=== PATIENT | female | born 1965 | race Two or more races ===

== ENCOUNTER 2024-07-16 10:23 | Emergency (ER) | payer MEDICAID, SELFPAY ==
[2024-07-16 10:58] VITALS: BP 132/79; PULSE 74; RESP 18; TEMP 36.7; O2SAT 97; BMI 29.9
--- NOTE | 2024-07-16 11:13 | PD.EDBACK ---
ED Back Injury Pain RME/HPI General Chief Complaint: Back Pain/Injury Stated Complaint: BACK PAIN Time Seen by Provider: 07/16/24 10:39 Arrival date/time: 07/16/24 10:23 58-year-old female presents to the emergency department today saying that she had ground-level fall 2 days ago patient reports since then she been having nerve pain patient reports upper back pain and arm pain. Patient reports that she fell with outstretched arms Limitations: no limitations Related Data Previous Rx's ?Medication ?Instructions ?Recorded docusate sodium 100 mg capsule 100 mg PO BID #40 caps 02/25/18 hydrocodone 5 mg-acetaminophen 325 1 tab PO Q6HR PRN pain #20 tabs 02/25/18 mg tablet (Gerlach) ibuprofen 600 mg tablet 600 mg PO QID PRN dolor y fiebre 11/22/18 #30 tabs cyclobenzaprine 10 mg tablet 10 mg PO TID PRN muscle spasm 10 07/16/24 days #30 tab-caps ibuprofen 600 mg tablet 600 mg PO Q6H #30 tabs 07/16/24 Allergies Allergy/AdvReac Type Severity Reaction Status Date / Time No Known Allergies Allergy Verified 07/16/24 10:25 Review of Systems Review of Systems Systems Reviewed: All systems reviewed, normal except as documented Constitutional Constitutional: Reports system reviewed and no additional complaints, except as documented, Denies fever(s) and Denies headache(s) Eyes Eyes: Reports system reviewed and no additional complaints, except as documented and Denies blurry vision ENT Ears, Nose, Mouth, and Throat: Reports system reviewed and no additional complaints, except as documented, Denies headache(s), Denies nasal congestion and Denies nasal discharge Cardiovascular Cardiovascular: Reports system reviewed and no additional complaints, except as documented, Denies chest pain and Denies dyspnea Respiratory Respiratory: Reports system reviewed and no additional complaints, except as documented, Denies chest congestion, Denies cough and Denies dyspnea Gastrointestinal Gastrointestinal: Reports system reviewed and no additional complaints, except as documented and Denies abdominal pain Musculoskeletal Musculoskeletal: Reports system reviewed and no additional complaints, except as documented, Denies abnormal gait, Denies deformity, Denies joint swelling and Reports other (Muscular pain) Integumentary/Breasts Skin/Breast: Reports system reviewed and no additional complaints, except as documented and Denies rash Neurologic Neurologic: Reports system reviewed and no additional complaints, except as documented, Reports as per HPI, Denies abnormal gait and Denies headache(s) Past Medical History Past Medical History NEUROLOGIC: Negative Neurological Disorders CARDIAC: Negative Cardiac Disorders ED Exam General Limitations: Present no limitations General appearance: Present alert and in no apparent distress Head Head exam: Present atraumatic, normocephalic and normal inspection Eye Eye exam: Present normal appearance, PERRL and EOMI; Absent conjunctival injection ENT ENT exam: Present normal exam, normal oropharynx and mucous membranes moist Neck Neck exam: Present normal inspection, full ROM and trachea midline; Absent tenderness Chest Chest inspection: Present normal inspection and symmetric chest wall rise Respiratory Respiratory exam: Present normal lung sounds bilaterally; Absent respiratory distress Cardiovascular Cardiovascular exam: Present regular rate, normal rhythm and normal heart sounds Abdominal Exam Abdominal exam: Present soft and normal bowel sounds; Absent distention, tenderness, guarding, rebound or rigidity Extremities Exam Extremities exam: Present normal inspection and full ROM Back Exam Back exam: Present normal inspection and full ROM Neurological Exam Neurological exam: Present alert, oriented X3 and CN II-XII intact Psychiatric Psychiatric exam: Present normal affect and normal mood Skin Skin exam: Present warm, dry, intact and normal color Course Quality Measures none Orders Category Date Time Status Ketorolac Inj [Toradol Inj] Med 07/16/24 11:13 Discontinued 30 mg IM X1 ONE Vital Signs Vital signs: Vital Signs Temperature 98.1 F 07/16/24 10:58 Pulse Rate 74 07/16/24 10:58 Respiratory Rate 18 07/16/24 10:58 Blood Pressure 132/79 H 07/16/24 10:58 Pulse Oximetry (%) 97 07/16/24 10:58 Oxygen Delivery Method Room Air 07/16/24 10:58 O2 saturation 97% room air within normal limits Back Pain / Injury MDM Narrative MDM Narrative:: 58-year-old female presents to the emergency department today saying that she had ground-level fall 2 days ago patient reports since then she been having nerve pain patient reports upper back pain and arm pain. Patient reports that she fell with outstretched arms Patient reports generalized pain no other specific patient is concerned that she has nerve pain Patient moves her arms freely patient walks with steady gait patient has no chest pain or shortness of breath no abdominal pain head and neck are atraumatic and patient reports no head or neck injury Patient discharged home in no distress to follow-up with primary care doctor in the next 24 to 48 hours and for any worsening symptoms to return to the ER immediately Patient data External records reviewed:: [facility] previous records Clinical information provided by:: patient Social determinants that could affect healthcare access:: none Patient has the following chronic illnesses:: None How is presenting disease/condition affected by chronic disease/condition?: no chronic disease Evaluation data The following diagnostics were reviewed and interpreted by me:: other (specify) (N/A) Lab and/or radiology exams considered but not ordered:: Consider not indicated Interpretation Summary: N/A Medications / Prescriptions Medications or Prescriptions considered but not ordered:: Given Medication administrations:: Medication Administration History Discontinued Medications Ketorolac Tromethamine (Ketorolac Inj 30 Mg/Ml Vial) 30 mg IM X1 ONE Stop: 07/16/24 11:14 Given Consultations Consultation(s) initiated? (list below): No Diagnosis Differential diagnosis back pain/injury: lumbar radiculopathy, strain of lumbar region and other (Muscle strain) Most likely diagnosis given after review of the tests above:: Fall Admission Indicated Admission indicated?: not indicated Admission Request Was there a request for admission?: No Disposition Plan Disposition Plan: Discharge Discharge Attestation Discharge Attestation: The patient and all family members were given an opportunity to ask questions and understood the discharge instructions. Discharge instructions specifically effects, indications for sooner follow up or return to the emergency department, and the expected course of current diagnosis. Patient condition: Stable Discharge Plan Plan Patient Disposition: HOME (Self Care) Disposition Comment: Stable Prescriptions/Referrals Prescriptions/Med Rec: New cyclobenzaprine 10 mg tablet 10 mg PO TID PRN (Reason: muscle spasm) 10 Days Qty: 30 0RF ibuprofen 600 mg tablet 600 mg PO Q6H Qty: 30 0RF No Action docusate sodium 100 mg Capsule 100 mg PO BID Qty: 40 0RF hydrocodone-acetaminophen [Gerlach] 5-325 mg tablet 1 tab PO Q6HR MDD 4 PRN (Reason: pain) Qty: 20 0RF ibuprofen 600 mg tablet 600 mg PO QID PRN (Reason: dolor y fiebre) Qty: 30 0RF Problem List Clinical Impression: Pain, Fall Patient/Caregiver Discharge Instructions Education Materials: Medicine for Pain Additional Instructions: Please follow up with your primary care doctor in the next 24-48hrs for any worsening symptoms return here immediately Print Language: Estonian Stand Alone Forms: Amie Award Info., Patient Portal Info Letter PA/SUPERVISOR PAYROLL Supervising Physician PA/SUPERVISOR PAYROLL Supervising Physician: Dr herrera
[2024-07-16] MEDS: KETOROLAC INJ 30 MG/ML VIAL IM (11:22)
== END 2024-07-16 11:39 | disposition home or self-care (01) ==
PROVIDERS: Emergency Provider Emergency Medicine
DX: S29.9XXA Unspecified injury of thorax, initial encounter (principal); M79.603 Pain in arm, unspecified; W18.30XA Fall on same level, unspecified, initial encounter
CPT/HCPCS: 96372; 99283; J1885

== ENCOUNTER 2024-10-06 22:41 | Emergency (ER) | payer MEDICAID, SELFPAY ==
--- NOTE | 2024-10-06 23:00 | EKG_ITS ---
[facility] Test Date: 2024-10-06 Pat Name: CLARENCE LOFTON Department: Room: - Gender: Female Manager Wind: : 1965 Requested By: Thomas Sebastian Order Number: [id number] Reading MD: Thomas Sebastian Measurements Intervals [place] Rate: 102 P: 43 AK: 160 QRS: 59 QRSD: 92 T: 52 QT: 364 QTc: 475 Interpretive Statements SINUS TACHYCARDIA POSSIBLE INFERIOR MYOCARDIAL INFARCTION , OF INDETERMINATE AGE [30 ms Q WAVE IN II/aVF] MODERATE T-WAVE ABNORMALITY, CONSIDER ANTERIOR ISCHEMIA [-0.1+ mV T-WAVE IN V3/V4] No previous ECG available for comparison /store/S0/[id number]/[id number].pdf
[2024-10-06 23:01] VITALS: BP 144/102; PULSE 96; RESP 18; TEMP 36.7; O2SAT 96
--- NOTE | 2024-10-06 23:01 | PD.EDRME ---
Rapid Medical Screening Exam RME Arrival date/time: 10/06/24 22:41 58 yo f present to ED for c/o of bodyaches, headache, abd pain for 1 week I have greeted and performed a focused initial assessment of this patient. A comprehensive ED assessment and evaluation of the patient, analysis of all test results, and completion of the medical decision making process will be conducted by additional ED providers. Chief Complaint: Headache Time Seen by Provider: 10/06/24 22:56
[2024-10-06 23:55] LABS: Basophils % (Auto) 0 % (0-2.5); Eosinophils # (Auto) 0.1 Thou/mm3 (0.0-0.5); Eosinophils % (Auto) 1 % (0-10); Hematocrit 41.7 % (36.0-46.0); Hemoglobin 14.6 g/dL (12.0-16.0); Immature Granulocytes % (Auto) 0 % (0-0); Immature Granulocytes Auto 0.03 Thou/mm3 (0.00-0.00); Lymphocytes # (Auto) 2.8 Thou/mm3 (1.0-4.8); Lymphocytes % (Auto) 30 % (10-50); Mean Corpuscular Hemoglobin 28.7 pg (25.0-35.0); Mean Corpuscular Volume 82 fL (80-100); Monocytes # (Auto) 0.5 Thou/mm3 (0.0-0.8); Monocytes % (Auto) 6 % (0-12); Neutrophils # (Auto) 5.8 Thou/mm3 (1.8-7.7); Neutrophils % (Auto) 63 % (37-80); Nucleated Red Blood Cell % 0 /100 WBC (0); Platelet Count 241 Thou/mm3 (140-440); Red Blood Count 5.09 Miln/mm3 (4.00-5.20); White Blood Count 9.2 Thou/mm3 (3.6-11.0)
[2024-10-07 00:12] LABS: Alanine Aminotransferase 36 U/L (10-49); Albumin, Serum 4.3 gm/dL (3.5-5.0); Alkaline Phosphatase 160 U/L (46-116); Aspartate Amino Transferase 38 U/L (0-34); BUN/Creatinine Ratio 18 Ratio (12-20); Bilirubin,Total 1.3 mg/dL (0.3-1.2); Blood Urea Nitrogen 11 mg/dL (9-23); Calcium 9.9 mg/dL (8.3-10.6); Calcium (Corrected) 9.9 mg/dL (8.5-10.1); Carbon Dioxide 23.6 mMol/L (20.0-31.0); Creatinine (Component) 0.6 mg/dL (0.6-1.3); Globulin 4.3 gm/dL (2.3-3.5); Glucose 123 mg/dL (74-106); Lipase 33 U/L (12-53); Total Protein 8.6 gm/dL (5.7-8.2); Troponin I < 0.020 ng/mL (0.0-0.045)
[2024-10-07 00:18] LABS: Collection Type, Urine Voided
[2024-10-07 00:26] LABS: Bilirubin,Urine Negative (Negative); Blood,Urine Negative (Negative); Clarity,Urine Clear (Clear/Hazy); Color,Urine Colorless (Lt Yel-Yel); Glucose, Urine Negative (Negative); Ketones,Urine 1+ (Negative); Leukocyte Esterase,Urine Negative (Negative); Nitrite,Urine Negative (Negative); PH,Urine 6.5 (5.0-7.0); Protein,Urine Negative (Neg - Trace); RBC,Urine < 1 /hpf (0-3); Specific Gravity,Urine 1.007 (1.001-1.035); Squamous Epithelial Cell,Urine < 1 /hpf (0-5); Urobilinogen,Urine Negative mg/dL (0.0-1.0); WBC,Urine < 1 /hpf (0-5)
[2024-10-07 00:47] LABS: Anion Gap 10 (7-16); Chloride 105 mMol/L (98-107); Osmolality,Calculated 277 (275-295); Potassium 3.6 mMol/L (3.4-5.1); Sodium 139 mMol/L (136-145)
[2024-10-07 01:20] VITALS: BMI 28.8
[2024-10-07 04:29] VITALS: BP 131/96; PULSE 86; RESP 17; TEMP 36.7; O2SAT 97
--- NOTE | 2024-10-07 06:19 | XR_ITS ---
Examination: CT brain head without contrast. 2-D sagittal coronal reconstructions Date and time of exam:September 2024 0626 hrs. Indications: Headaches bodyaches today CTDI: vol (mGy):40.1 DLP: (mGycm):881 Technique: Multiple CT axial sections of the brain have been obtained, 5 mm slice thickness. Contrast has not been administered. 2-D sagittal, coronal reconstructions have been obtained Low dose protocols were performed. One or more of the following dose reduction techniques were used; automated exposure control, adjustment of the mA and/or KV according to patient size, use of iterative reconstruction technique. Findings: No significant ventricular enlargement. Intra-axial or extra-axial hemorrhage density is not seen. No mass effect or midline shift Basal cisterns are not remarkable. Fourth ventricle is midline. Cranial vault intact. Impression: Negative for acute hemorrhage, mass effect or midline shift
--- NOTE | 2024-10-07 06:23 | PD.EDHA ---
ED Headache RME/HPI General Chief Complaint: Headache Stated Complaint: HEAD PAIN, BODY ACHES Time Seen by Provider: 10/06/24 22:56 Source: patient Arrival date/time: 10/06/24 22:41 58-year-old female with no known medical history presents to the emergency room with a chief complaint of bodyaches, headache, dizziness x 8 days. Mode of arrival: ambulatory Limitations: no limitations RME / HPI RME / HPI Narrative: 10/06/24 22:41 58 yo f present to ED for c/o of bodyaches, headache, abd pain for 1 week I have greeted and performed a focused initial assessment of this patient. A comprehensive ED assessment and evaluation of the patient, analysis of all test results, and completion of the medical decision making process will be conducted by additional ED providers. Related Data Previous Rx's ?Medication ?Instructions ?Recorded docusate sodium 100 mg capsule 100 mg PO BID #40 caps 02/25/18 hydrocodone 5 mg-acetaminophen 325 1 tab PO Q6HR PRN pain #20 tabs 02/25/18 mg tablet (Roy) ibuprofen 600 mg tablet 600 mg PO QID PRN dolor y fiebre 11/22/18 #30 tabs ibuprofen 600 mg tablet 600 mg PO Q6H #30 tabs 07/16/24 meclizine 25 mg tablet 25 mg PO BID PRN dizziness #14 tabs 10/07/24 Allergies Allergy/AdvReac Type Severity Reaction Status Date / Time No Known Allergies Allergy Verified 07/16/24 10:25 Review of Systems Review of Systems Systems Reviewed: All systems reviewed, normal except as documented Constitutional Constitutional: Reports system reviewed and no additional complaints, except as documented, Denies fatigue, Denies fever(s), Reports headache(s) and Reports weakness Eyes Eyes: Reports system reviewed and no additional complaints, except as documented, Denies blurry vision and Denies change in vision ENT Ears, Nose, Mouth, and Throat: Reports system reviewed and no additional complaints, except as documented, Denies otalgia, Reports headache(s), Denies nasal congestion, Denies throat swelling and Reports vertigo Cardiovascular Cardiovascular: Reports system reviewed and no additional complaints, except as documented, Denies chest pain, Denies dyspnea and Denies dyspnea on exertion Respiratory Respiratory: Reports system reviewed and no additional complaints, except as documented, Denies chest congestion, Denies cough, Denies dyspnea, Denies dyspnea on exertion and Denies wheezing Gastrointestinal Gastrointestinal: Reports system reviewed and no additional complaints, except as documented, Denies abdominal pain, Denies cramping, Denies nausea and Denies vomiting Genitourinary Genitourinary: Reports system reviewed and no additional complaints, except as documented Musculoskeletal Musculoskeletal: Reports system reviewed and no additional complaints, except as documented and Denies back pain Integumentary/Breasts Skin/Breast: Reports system reviewed and no additional complaints, except as documented and Denies wounds Neurologic Neurologic: Reports system reviewed and no additional complaints, except as documented, Denies confusion, Reports headache(s), Denies lack of coordination, Reports vertigo and Reports weakness Psychiatric Psychiatric: Reports system reviewed and no additional complaints, except as documented, Denies anxiety, Denies confusion, Denies depression, Denies paranoia, Denies suicidal ideation and Denies tactile hallucinations Endocrine Endocrine: Reports system reviewed and no additional complaints, except as documented and Denies fatigue Hematologic/Lymphatic Hematologic/Lymphatic: Reports system reviewed and no additional complaints, except as documented and Denies lymphadenopathy Allergic/Immunologic Allergic/Immunologic: Reports system reviewed and no additional complaints, except as documented, Denies throat swelling, Denies urticaria and Denies wheezing Past Medical History Past Medical History NEUROLOGIC: Negative Neurological Disorders or Seizures CARDIAC: Negative Cardiac Disorders or Congestive Heart Failure RESPIRATORY: Negative Chronic Obstructive Pulmonary Disease (COPD) or Asthma GASTROINTESTINAL: Negative Gastrointestinal Disorders GENITOURINARY: Negative Genitourinary Disorders or Renal Disease ENDOCRINE: Negative Diabetes Mellitus Type 1 or Diabetes Mellitus Type 2 HEMATOLOGIC: Negative Sickle Cell Disease OTHER HISTORY: Negative Blood Transfusions, Blood Transfusion Reaction or Anesthesia Reactions Social History SMOKING STATUS: Never smoker SECOND HAND EXPOSURE: No SUBSTANCE USE: does not use ED Exam General Limitations: Present no limitations General appearance: Present alert and in no apparent distress Head Head exam: Present atraumatic, normocephalic and normal inspection Eye Eye exam: Present normal appearance, PERRL and EOMI ENT ENT exam: Present normal exam, normal oropharynx and mucous membranes moist Neck Neck exam: Present normal inspection, full ROM and trachea midline Chest Chest inspection: Present normal inspection and symmetric chest wall rise Respiratory Respiratory exam: Present normal lung sounds bilaterally; Absent respiratory distress, wheezes, stridor, accessory muscle use or prolonged expiratory phase Cardiovascular Cardiovascular exam: Present regular rate, normal rhythm and normal heart sounds; Absent bradycardia, tachycardia, irregular rhythm or diastolic murmur Abdominal Exam Abdominal exam: Present soft and normal bowel sounds Extremities Exam Extremities exam: Present normal inspection and full ROM Back Exam Back exam: Present normal inspection and full ROM Neurological Exam Neurological exam: Present alert, oriented X3 and CN II-XII intact Psychiatric Psychiatric exam: Present normal affect and normal mood Skin Skin exam: Present warm, dry, intact and normal color Course Quality Measures none Orders Category Date Time Status Bedside COVID-19 Antigen Test NOW Care 10/06/24 23:01 Active Bedside Influenza A&B Antigen Test NOW Care 10/06/24 23:01 Completed EKG (ED ONLY) *Do not use* NOW Care 10/06/24 23:[address] head/brain wo con Stat Exams 10/07/24 06:19 Completed EKG (ED Only) Stat Exams 10/06/24 23:00 Draft CBC Stat Lab 10/06/24 23:40 Completed CMP [Comprehensive Metabolic Panel] Stat Lab 10/06/24 23:40 Completed Lipase Stat Lab 10/06/24 23:40 Completed Troponin I Stat Lab 10/06/24 23:40 Completed UA [Urinalysis] Stat Lab 10/06/24 23:59 Completed Meclizine HCl [Antivert] Med 10/07/24 06:19 Discontinued 50 mg PO X1 ONE Vital Signs Vital signs: Vital Signs Temperature 98.0 F 10/06/24 23:01 Pulse Rate 96 10/06/24 23:01 Respiratory Rate 18 10/06/24 23:01 Blood Pressure 144/102 H 10/06/24 23:01 Pulse Oximetry (%) 96 10/06/24 23:01 Oxygen Delivery Method Room Air 10/06/24 23:01 Procedures -ED EKG Interpretation #1: Date of EK10/06/24 Rate: 102 EKG Impression: Sinus tachycardia Headache MDM Narrative MDM Narrative:: 58-year-old female with no known medical history presents to the emergency room with a chief complaint of bodyaches, headache, dizziness x 8 days. Patient is hemodynamically stable and in no apparent distress. During my reevaluation I examined the patient and patient is still having 10 out of 10 headaches and dizziness. I decided to order CT of the head and brain which was negative for any acute findings. The patient is a GCS of 15 she is alert and oriented x 3 pupils are PERRLA EOMs are intact the patient has a normal steady gait and states that she is having dizziness when laying down in bed and with sudden positional changes. EKG CBC CMP troponin were all within normal limits Patient was discharged and educated to follow-up with primary care provider in the next 24 to 48 hours and return to the emergency room for any evidence of worsening signs or symptoms Patient data External records reviewed:: [facility] previous records Clinical information provided by:: patient Social determinants that could affect healthcare access:: none Patient has the following chronic illnesses:: No chronic illness How is presenting disease/condition affected by chronic disease/condition?: no chronic disease Evaluation data The following diagnostics were reviewed and interpreted by me:: lab results and radiology exam(s) Lab and/or radiology exams considered but not ordered:: Labs and radiology exams considered and ordered Interpretation Summary: CT of the head and brain-Findings: No significant ventricular enlargement. Intra-axial or extra-axial hemorrhage density is not seen. No mass effect or midline shift Basal cisterns are not remarkable. Fourth ventricle is midline. Cranial vault intact. Impression: Negative for acute hemorrhage, mass effect or midline shift Medications / Prescriptions Medications or Prescriptions considered but not ordered:: Medication given Medication administrations:: Medication Administration History Discontinued Medications Meclizine HCl (Meclizine Hcl 25 Mg Tablet) 50 mg PO X1 ONE Stop: 10/07/24 06:20 Last Admin: 10/07/24 06:32 Dose: 50 mg Documented By: DIMITRIOS Medication given Consultations Consultation(s) initiated? (list below): No Diagnosis Differential diagnosis headache: migraine, tension headache, headache, sinusitis and other (Vertigo) Most likely diagnosis given after review of the tests above:: Vertigo Admission Indicated Admission indicated?: not indicated Admission Request Was there a request for admission?: No Disposition Plan Disposition Plan: Discharge Discharge Attestation Discharge Attestation: The patient and all family members were given an opportunity to ask questions and understood the discharge instructions. Discharge instructions specifically effects, indications for sooner follow up or return to the emergency department, and the expected course of current diagnosis. Patient condition: Stable Discharge Plan Plan Patient Disposition: HOME (Self Care) Prescriptions/Referrals Prescriptions/Med Rec: New meclizine 25 mg tablet 25 mg PO BID PRN (Reason: dizziness) Qty: 14 0RF No Action docusate sodium 100 mg Capsule 100 mg PO BID Qty: 40 0RF hydrocodone-acetaminophen [Roy] 5-325 mg tablet 1 tab PO Q6HR MDD 4 PRN (Reason: pain) Qty: 20 0RF ibuprofen 600 mg tablet 600 mg PO QID PRN (Reason: dolor y fiebre) Qty: 30 0RF ibuprofen 600 mg tablet 600 mg PO Q6H Qty: 30 0RF Referrals: No Primary/Family,Physician [Primary Care Provider] - In 1 week Problem List Clinical Impression: Vertigo Patient/Caregiver Discharge Instructions Education Materials: Vertigo Medicine Tx, Vertigo Staying Safe Additional Instructions: Por favor, consulte con yuan m?dico de cabecera en las pr?ximas 24 a 48 horas. Se realiz? jihan tomograf?a computarizada de david y cerebro y result? negativa para cualquier hallazgo sidra. Yuan examen card?aco se encontraba dentro de los l?mites normales. Si hay evidencia de empeoramiento de los signos o s?ntomas, regrese a la gabe de emergencias de inmediato. Print Language: Hungarian Stand Alone Forms: Amie Award Info., Patient Portal Info Letter PA/EXPLOSIVE ORDNANCE DISPOSAL SPECIALIST Supervising Physician PA/EXPLOSIVE ORDNANCE DISPOSAL SPECIALIST Supervising Physician: Dr. Ruiz
[2024-10-07] MEDS: MECLIZINE HCL 25 MG TABLET 50 MG PO (06:32)
== END 2024-10-07 07:59 | disposition home or self-care (01) ==
PROVIDERS: Physician Assistant; Emergency Provider Emergency Medicine
DX: R42 Dizziness and giddiness (principal); R00.0 Tachycardia, unspecified
CPT/HCPCS: 36415; 70450; 80053; 81001; 83690; 84484; 85025; 87400; 87811; 93005; 99284; A9270